=== PATIENT | female | born 1980 ===

== ENCOUNTER 2022-01-28 12:16 | Emergency (ER) | payer MEDICAID ==
[~2022-01-28] VITALS: Ht 157.5 cm; Wt 72.7 kg
[2022-01-28 13:19] LABS: HEMATOCRIT 21.3 % (36-46); MEAN CORPUSCULAR HEMOGLOBIN 14.3 pg (26.0-34.0); MEAN CORPUSCULAR VOLUME 53 fL (80-100); RED BLOOD CELL COUNT(AUTO) 4.02 MIL/uL (4.00-5.20)
[2022-01-28 13:30] LABS: HEMOGLOBIN 5.8 g/dL (12.0-16.0)
[2022-01-28 13:31] LABS: ANION GAP 6 mmol/L (8-16); CALCIUM, TOTAL 8.5 mg/dL (8.8-10.5); CARBON DIOXIDE 26 mmol/L (22-29); CHLORIDE 103 mmol/L (98-107); CREATININE 0.64 mg/dL (0.60-1.30); GLOMERULAR FILTR. RATE CALC > 60 mL/min (>60); GLUCOSE,RANDOM 117 mg/dL (70-110); POTASSIUM 4.4 mmol/L (3.5-5.1); SODIUM SERUM 135 mmol/L (136-145); UREA NITROGEN, BLOOD 16 mg/dL (7-18)
[2022-01-28 13:34] LABS: PROTHROMBIN TIME 10.6 SEC (9.4-11.6)
[2022-01-28 13:36] LABS: BAND NEUTROPHILS % (MANUAL) 1 % (0-5); LYMPHOCYTES % (MANUAL) 20 % (22-44); MONOCYTES % (MANUAL) 3 % (2-9); SEGMENTED NEUTROPHILS % 76 % (40-70)
[2022-01-28 13:37] LABS: ALANINE AMINOTRANSFERASE 16 U/L (12-78); ALBUMIN 3.5 g/dL (3.4-5.0); ALKALINE PHOSPHATASE 25 U/L (46-116); ASPARTATE AMINOTRANSFERASE 16 U/L (15-37); BILIRUBIN,TOTAL 0.4 mg/dL (0.1-1.0); CREATINE KINASE, TOTAL ONLY 34 U/L (26-192); TOTAL PROTEIN, SERUM 8.1 g/dL (6.4-8.2)
[2022-01-28 13:38] LABS: PLATELET COUNT (AUTO) 205 K/uL (150-450)
[2022-01-28 13:39] LABS: PLATELET MORPHOLOGY COMMENT LARGE PLTS PRESENT
[2022-01-28 13:49] LABS: B-TYPE NATRIURETIC PEPTIDE 56 pg/mL (0-100)
[2022-01-28] MEDS ORDERED: ACETAMINOPHEN 500 MG TABLET PO ONE (17:00)
[2022-01-28 18:15] VITALS: BP 114/68
[2022-01-28 18:30] VITALS: BP 108/70
[2022-01-28 18:45] VITALS: BP 111/67
[2022-01-28 19:00] VITALS: BP 103/63
[2022-01-28 19:15] VITALS: BP 111/64
[2022-01-28 19:30] VITALS: BP 116/71
== END 2022-01-28 21:26 | disposition admitted as inpatient to this hospital (09) ==
LOC: EMS 12:21
DX: D64.9 Anemia, unspecified (principal); R55 Syncope and collapse; R42 Dizziness and giddiness
CPT/HCPCS: 36415; 36430; 70450; 71045; 80053; 82550; 83880; 84484; 85025; 85610; 85730; 86850; 86900; 86901; 86923; 93005; 99285; P9016